=== PATIENT | female | born 1985 ===

== ENCOUNTER 2016-12-17 21:20 | Emergency (ER) | payer MEDICARE, MEDICAID ==
--- NOTE | ~2016-12-17 | ER ---
PATIENT'S NAME: MAYDA HENDRICKSON [facility] AGE: 31 Y [address] ROOM: [place] [id number] LOCATION: ED ADMIT DATE: 12/17/2016 ER/Outpatient Report DISCHARGE DATE: 12/17/2016 FAMILY PHYSICIAN: Garry Gamboa MD ATTENDING PHYSICIAN: Sal Melgar Admission date and time documented on the medical record. I saw the patient at 2140 hours. CHIEF COMPLAINT: Right neck, shoulder, arm pain. HISTORY OF PRESENT ILLNESS: This patient is a 31-year-old female, comes in with right shoulder pain radiating down her right arm and some right lateral neck pain. No trauma or fall. No heavy lifting, pushing, or pulling. Did clean her house today. The pain started around 1730 hours late this afternoon. Three years ago had an injury, a fall with fracture neck and subsequent neuralgias. She has flare- up, but not as bad as this one. No recent colds, coughs, flus, fever, chills, or sweats. No headache; eyes, ears, nose, throat, neck, or spine pain. No chest pain or shortness of breath. No abdominal pain, nausea, vomiting, diarrhea, or urinary complaints. Other than the right shoulder and arm, no other joint or muscle swelling, redness, or pain. No skin eruptions or rash. Does have hypothyroidism, mental development delay, anxiety, depression, seizure disorder, and restless legs syndrome. HOME MEDICATIONS: See attached medication list. ALLERGIES: MORPHINE AND TRAMADOL. SOCIAL HISTORY: Nonsmoker and nondrinker. SIGNIFICANT PAST MEDICAL HISTORY: Seizure disorder, restless legs syndrome, hypothyroidism, mental developmental delay, and anxiety. OPERATIONS: Tonsillectomy. Norplant placement. Nasal surgery. REVIEW OF SYSTEMS: All systems reviewed by me are negative with the exception of those discussed in the history of present illness. PATIENT'S NAME: MAYDA HENDRICKSON [facility] AGE: 31 Y [address] ROOM: [place] [id number] LOCATION: [facility] ADMIT DATE: 12/17/2016 ER/Outpatient Report DISCHARGE DATE: 12/17/2016 FAMILY PHYSICIAN: Garry Gamboa MD ATTENDING PHYSICIAN: Sal Melgar PHYSICAL EXAMINATION: VITAL SIGNS: Temperature 98.4 tympanic, pulse 84, respirations 16, and O2 saturation on room air is 94% on examination. HEENT: Head: Normocephalic. Eyes, Ears, Nose, Throat: Clear. NECK: The patient has some right lateral neck muscle tightness and discomfort. LUNGS: Clear anterior and posteriorly. HEART: Regular. Pulses are palpable. EXTREMITIES: The patient has tenderness over her right shoulder girdle, radiating down her right arm; however, movement sensory motor appears to be intact. VASCULAR: Intact. SKIN: There are no skin eruptions or rash. IMPRESSION: Right lateral neck, right shoulder and arm pain, etiology uncertain. May be inflammatory response. Maybe neuropathy type of pain. PLAN: The patient was given 60 mg of Toradol IM in the emergency room, 10 mg of Decadron IM in the emergency room. Discharged home. Observation. Activity as tolerated. Heating pad to sore areas intermittently as needed. Continue present home medications and care. Charlotte 5/325 as needed for pain. Prednisone 20 mg b.i.d. for a week. Toradol 10 mg 1 every 6 hours x12 doses. Follow up with personal physician as needed. Discussion ensued with the patient and her mother regarding my findings and recommendations, they understand. MD RAMÍREZ CARTER/modl /[id number] d: 12/18/16 0034 t: 12/18/16 1819, OUTPATIENT REPORT
== END 2016-12-17 22:18 | disposition disaster alternative care site (69) ==
LOC: GMED 21:20
DX: M25.511 Pain in right shoulder (principal); M79.601 Pain in right arm; M54.2 Cervicalgia; Z90.89 Acquired absence of other organs; Z98.890 Other specified postprocedural states; G40.909 Epilepsy, unspecified, not intractable, without status epilepticus; G25.81 Restless legs syndrome; E03.9 Hypothyroidism, unspecified; F41.9 Anxiety disorder, unspecified; Z88.8 Allergy status to other drugs, medicaments and biological substances
CPT/HCPCS: J1100; J1885